=== PATIENT | female | born 1945 | race Caucasian/White ===

== ENCOUNTER 2018-03-07 16:03 | Emergency (ER) | payer SELFPAY ==
[~2018-03-07] VITALS: Ht 170.2 cm; Wt 65.9 kg
[2018-03-07 18:32] VITALS: BP 166/106
== END 2018-03-07 18:20 | disposition home or self-care (01) ==
LOC: ER 16:04
DX: S40.021A Contusion of right upper arm, initial encounter (principal); W10.9XXA Fall (on) (from) unspecified stairs and steps, initial encounter; Y93.89 Activity, other specified; Y92.099 Unspecified place in other non-institutional residence as the place of occurrence of the external cause; Y99.8 Other external cause status
CPT/HCPCS: 73080; 99284